=== PATIENT | male | born 1960 | race Caucasian/White ===

== ENCOUNTER → 2016-05-19 | Outpatient (CLI) | payer OTHER ==
--- NOTE | ~2016-05-19 | CR63 ---
[facility] A Service of [facility] RADIOLOGY TEXT RESULTS PATIENT: FABIAN WELCH LOCATION: [facility] : 56 UNIT #: [id number] AGE: [address]: ADAMA SPAULDING SEX: M ORDER DR: [id number] [facility] [address] [place], [place] [address] [id number] O MR#: [id number] Acc #: [id number] NAME: FABIAN WELCH : 1960 SEX: M STUDY DATE/TIME: 05/19/2016 16:59 UNIT: [facility] ROOM: STUDY DESCRIPTION: CR Chest 2 View Attending Physician: Paradise Acuna Referring Physician: Paradise Acuna Ordering Physician: Paradise Acuna Primary Care Physician: Mikala John M.D. MEDICAL IMAGING REPORT This report is preliminary unless electronic signature is present EXAM Chest PA and lateral 05/19/2016 HISTORY Shortness of breath and cough with chest congestion for 1.5 weeks, pneumonia. FINDINGS The heart is normal in size. There is minimal infiltrate in the left lower lobe characteristic of pneumonia. Lungs are otherwise clear. There are no pleural effusions. IMPRESSION Left lower lobe pneumonia Dictated by... Reed Jimenez M.D. THIS IS AN ELECTRONICALLY VERIFIED REPORT Reed Jimenez M.D. at 05/22/2016 7:39 AM THONG/gaetano TD: 05/20/2016 01:41 JOB #: [id number] MEDICAL IMAGING REPORT Page 1 of 1 COPY
== END | disposition home or self-care (01) ==
LOC: CRAD 16:49
DX: R05 Cough (principal); J18.9 Pneumonia, unspecified organism
CPT/HCPCS: 71020